=== PATIENT | male | born 1980 | race Caucasian/White ===

== ENCOUNTER → 2020-04-26 16:40 | Outpatient (BNVA) | payer OTHER, SELFPAY | PROVIDERS: Family Provider Family Medicine; PCP Family Medicine; Visit Provider Internal Medicine | DX: Z11.59 Encounter for screening for other viral diseases (principal); Z20.828 Contact with and (suspected) exposure to other viral communicable diseases; J06.9 Acute upper respiratory infection, unspecified | CPT/HCPCS: 87635 ==

== ENCOUNTER → 2021-08-06 13:57 | Outpatient (BNVA) | payer OTHER, SELFPAY | PROVIDERS: Family Provider Family Medicine; PCP Family Medicine; Visit Provider Nurse Practitioner Family | DX: Z20.822 Contact with and (suspected) exposure to COVID-19 (principal) | CPT/HCPCS: 87635 ==

== ENCOUNTER → 2025-06-21 13:10 | Outpatient (BNVA) | payer OTHER, SELFPAY | PROVIDERS: Family Provider Family Medicine; PCP Family Medicine; Visit Provider Orthopaedic Surgery | DX: Z01.818 Encounter for other preprocedural examination (principal); S62.325A Displaced fracture of shaft of fourth metacarpal bone, left hand, initial encounter for closed fracture; X58.XXXA Exposure to other specified factors, initial encounter | CPT/HCPCS: 36415; 73090; 73130; 80053; 81001; 85025 ==

== ENCOUNTER 2025-06-21 13:54 | Outpatient (CLI) | payer OTHER, SELFPAY | END 2025-06-21 13:55 | disposition home or self-care (01) | LOC: SPT 13:55 | PROVIDERS: Family Provider Family Medicine; PCP Family Medicine; Visit Provider Orthopaedic Surgery | DX: Z46.89 Encounter for fitting and adjustment of other specified devices (principal); S62.92XD Unspecified fracture of left hand, subsequent encounter for fracture with routine healing; X58.XXXD Exposure to other specified factors, subsequent encounter | CPT/HCPCS: L3807 ==

== ENCOUNTER 2025-06-27 10:44 | Day surgery (SDC) | payer OTHER, SELFPAY ==
[2025-06-27] VITALS (12 sets, daily range): BP systolic 125–171; BP diastolic 90–112; PULSE 66–84; RESP 16–19; TEMP 36.2–37.1; O2SAT 93–100; BMI 28.7
--- NOTE | 2025-06-27 12:27 | ANES.PREANE2 ---
Pre-Anesthetic Assessment Height/Weight: Height 1.78 m Weight 90.718 kg Temp Pulse Resp BP Pulse Ox O2 Del Method 97.2 F L 84 17 155/100 97 Room Air 06/27/25 11:07 06/27/25 11:07 06/27/25 11:07 06/27/25 11:07 06/27/25 11:07 06/27/25 11:07 Preop Diagnosis: left fourth metacarpal fracture Operation Date: 06/27/25 12:20 Proposed Procedures p closed reduction fourth finger with percutaneous pinning(Left) - Ruddy Mauro, Familial anesthetic complications: None Was Beta Joo taken within 24 hours: N/A Was Clonidine taken within 24 hours: N/A Last intake: Intake Last Liquid Date 06/26/25 Last Liquid Time 23:00 Last Solid Date 06/26/25 Last Solid Time 21:00 Social No alcohol and No tobacco Exam alert, oriented x 3, clear to auscultation bilaterally and regular rate & rhythm Airway Mallampati: Class II Dentition: chipped Anesthetic Plan ASA status: 2 Anesthesia: General Risk of > 500 ml blood loss (7ml/kg in children): No Medications/Allergies Home Medications ?Medication ?Instructions ?Recorded ?Confirmed ?Last Taken ?Type ibuprofen 300 mg tablet 600 mg PO TID 06/21/25 06/27/25 06/17/25 History left boxer brace #1 ea 06/21/25 06/21/25 Unknown Rx magnesium 200 mg tablet 200 mg PO DAILY 06/22/25 06/27/25 06/25/25 History potassium 99 mg tablet 99 mg PO 1XD 06/22/25 06/27/25 06/25/25 History zinc 100 mg tablet 100 mg PO DAILY 06/22/25 06/27/25 06/25/25 History Allergies Allergy/AdvReac Type Severity Reaction Status Date / Time No Known Allergies Allergy Verified 06/27/25 10:59 Current Medications Generic Name Dose Route Start Last Admin Trade Name Freq PRN Reason Stop Dose Admin Sodium Chloride 1,000 mls @ 30 mls/hr 06/27/25 11:00 06/27/25 11:18 Sodium Chloride 0.9% IV 06/28/25 10:59 30 mls/hr .Q24H LUCIUS Administration PFSH Anesthesia Social History Smoking and tobacco/nicotine status: never used tobacco/nicotine
--- NOTE | 2025-06-27 12:29 | W.PM.OPSUD ---
Surgery/Procedure H&P Update DATE OF PROCEDURE: June 27, 2025 DATE H&P PERFORMED: 06/21/25 H&P UPDATE INFORMATION: I have reviewed H&P completed within last 30 days, I have examined patient prior to procedure and No changes to prior documentation PREOP DIAGNOSIS: left fourth metacarpal fracture PLANNED PROCEDURE: Operation Date: 06/27/25 12:20 Proposed Procedures p closed reduction fourth finger with percutaneous pinning(Left) - Ruddy Mauro DO
--- NOTE | 2025-06-27 13:39 | PM.OP ---
Operative Report Date of procedure: June 27, 2025 Pre-op diagnosis: 1. Fourth metacarpal fracture left hand 2. Fifth distal phalanx fracture left hand Post-op diagnosis: same Procedure done: 1. Closed reduction percutaneous pinning of fourth metacarpal of left hand 2. Closed treatment of fifth distal phalanx fracture of the left hand Surgeon: Ruddy Mauro DO Procedure: 1. Closed reduction percutaneous pinning of fourth metacarpal of left hand 2. Closed treatment of fifth distal phalanx fracture of the left hand patient is brought to the operative suite after undergoing anesthesia patient was placed in the Supine position. All areas impingement were well-padded patient's prepped and draped in sterile fashion. Attention was brought to the fracture. Traction was pulled across the fourth metacarpal. A pin was placed distally to the fracture. This was placed through the fifth metacarpal into the fourth metacarpal into the third metacarpal. And then a second pin was placed distal to the fracture through the fifth metacarpal into the fourth metacarpal base into the third metacarpal base. AP lateral fluoroscopy ensured the fracture was reduced. Pins were cut and bent. Jurgan balls were placed on. Patient was placed in an ulnar gutter splint to splinting the fifth distal phalanx fracture as well. Patient was then transferred to the PACU in stable condition.
[2025-06-27] MEDS: labetalol 5 mg/mL SDV 20mL 10 MG IVP (14:11)
[2025-06-27] MEDS: HYDROcodone-acetaminophen 5-325 mg Tablet 1 TAB PO (14:28)
--- NOTE | 2025-06-27 15:25 | ANE.PACU2 ---
Inpatient post-anesthesia follow up: Airway intact: Yes Vital signs: Temperature 98.0 F Pulse Rate 80 Respiratory Rate 18 Blood Pressure 138/94 Pulse Oximetry 99 Oxygen Delivery Me thod Room Air Oxygen Flow Rate Fraction of Inspir ed Oxygen Hydration adequate: Yes Nausea and vomiting: No Pain level: 1 Mental status: Baseline
--- NOTE | 2025-06-27 15:49 | XRR_ITS ---
PROCEDURE INFORMATION: Exam: XR Left Hand Exam date and time: 06/27/2025 2:20 PM Age: 45 years old Clinical indication: Pain; Hand; Left; Additional info: 1. Closed reduction percutaneous pinning of fourth metacarp TECHNIQUE: Imaging protocol: Radiologic exam of the left hand. Views: 3 or more views. COMPARISON: CR XR hand LT min 3V* [id number] 06/21/2025 1:16 PM FINDINGS: Bones/joints: Frontal and lateral fluoroscopic images of the left hand demonstrate 2 percutaneous pins traversing the mid and proximal aspects of the 5th through 3rd metacarpals. Improved alignment of the mid/proximal 4th metacarpal fracture, with only slight dorsal apex angulation. No other fracture seen. XR/XR hand LT min 3V* [id number] IMPRESSION: Two percutaneous pins traversing the mid and proximal aspects of the 5th through 3rd metacarpals. Improved alignment of the mid/proximal 4th metacarpal fracture, with only slight dorsal apex angulation.
== END 2025-06-27 15:30 | disposition home or self-care (01) ==
PROVIDERS: PCP Family Medicine; Visit Provider Orthopaedic Surgery
PROC: (CPT 26605; principal; 2025-06-27 12:10)
DX: S62.305A Unspecified fracture of fourth metacarpal bone, left hand, initial encounter for closed fracture (principal); S62.637A Displaced fracture of distal phalanx of left little finger, initial encounter for closed fracture; V89.2XXA Person injured in unspecified motor-vehicle accident, traffic, initial encounter
CPT/HCPCS: 26605; 26755; 73130; 76000; C1713; J1100; J1885; J2250; J2405; J2704; J3010; J3490; J7030; J9999

== ENCOUNTER → 2025-07-12 14:26 | Outpatient (BNVA) | payer OTHER, SELFPAY | PROVIDERS: PCP Family Medicine; Visit Provider Orthopaedic Surgery | DX: Z98.890 Other specified postprocedural states (principal); Z46.89 Encounter for fitting and adjustment of other specified devices | CPT/HCPCS: 73130 ==

== ENCOUNTER 2025-07-12 15:42 | Outpatient (CLI) | payer OTHER, SELFPAY | END 2025-07-12 15:43 | disposition home or self-care (01) | LOC: SPT 15:43 | PROVIDERS: PCP Family Medicine; Visit Provider Orthopaedic Surgery | DX: Z47.89 Encounter for other orthopedic aftercare (principal); Z98.890 Other specified postprocedural states | CPT/HCPCS: L3807 ==